=== PATIENT | female | born 1970 | race Caucasian/White ===

== ENCOUNTER → 2021-02-04 | Outpatient (CLI) | payer OTHER ==
--- NOTE | 2021-02-05 16:11 | REPVR ---
PROCEDURE INFORMATION: Exam: CT Chest Without Contrast; Diagnostic Exam date and time: 02/04/2021 5:28 PM Age: 50 years old Clinical indication: Abnormal findings; Lung mass or nodule; Single or solitary nodule; Additional info: Solitary pulmonary nodule TECHNIQUE: Imaging protocol: Diagnostic computed tomography of the chest without contrast. 3D rendering (Not supervised by radiologist): MIP and/or 3D reconstructed images were created by the technologist. Radiation optimization: All CT scans at this facility use at least one of these dose optimization techniques: automated exposure control; mA and/or kV adjustment per patient size (includes targeted exams where dose is matched to clinical indication); or iterative reconstruction. COMPARISON: No relevant prior studies available. FINDINGS: Lungs: Punctate calcified granuloma in the right lower lobe (series 202, image 60). No suspicious pulmonary nodules. No areas of consolidation. Pleural spaces: Unremarkable. No pneumothorax. No pleural effusion. Heart: Unremarkable. No pericardial effusion. Aorta: Unremarkable. Lymph nodes: No enlarged lymph nodes. Bones/joints: Multilevel mild degenerative changes of the visualized spine. No acute fracture. Soft tissues: Unremarkable. IMPRESSION: 1. No acute findings. No suspicious pulmonary nodules. 2. Chronic findings, as above. Electronically signed by: Refugio Tomlinson On 02/05/2021 16:10:56 PM
== END ==
LOC: M RAD 17:04
PROVIDERS: ATTEND Family Medicine
DX: D50.9 Iron deficiency anemia, unspecified (principal); R91.1 Solitary pulmonary nodule

== ENCOUNTER → 2024-11-01 | Outpatient (REF) | payer OTHER ==
[2024-11-01 17:41] LABS: BLOOD UREA NITROGEN 10 MG/DL (9-23); CREATININE FOR GFR 0.62 MG/DL (0.55-1.30); GLOMERULAR FILTRATION RATE > 60.0 (>51)
== END ==
LOC: M LABDRAWC 16:38
PROVIDERS: ATTEND Internal Medicine Hematology & Oncology
DX: Z01.812 Encounter for preprocedural laboratory examination (principal)